=== PATIENT | male | born 1990 | race Caucasian/White ===

== ENCOUNTER 2025-03-13 09:44 | Emergency (ER) | payer OTHER, SELFPAY ==
[2025-03-13 09:53] VITALS: BP 126/90; PULSE 68; RESP 12; TEMP 36.2; O2SAT 97; BMI 29.1
[2025-03-13 10:17] LABS: Add Manual Diff / Slide Review NO; Basophils Absolute Auto 0 /uL (0-100); Basophils Percent Auto 0.2 % (0-2); Eosinophils Absolute Auto 200 /uL (0-450); Eosinophils Percent Auto 1.9 % (2-4); Hematocrit 45.1 % (41-53); Hemoglobin 15.5 g/dL (13.5-17.5); Lymphocytes Absolute Auto 1600 /uL (1100-4500); Mean Corpuscular HGB Conc 34.5 % (30-36); Mean Corpuscular Volume 89.9 fL (80-100); Monocytes Absolute Auto 800 /uL (0-900); Monocytes Percent Auto 10.7 % (3-14); Neutrophils Absolute Auto 5200 /uL (1500-7000); Neutrophils Percent Auto 66.2 % (50-75); Platelet Count 205 X10^3/uL (150-400); Red Blood Cell Count 5.01 X10^6/uL (4.5-5.9); Red Cell Distribution Width 12.2 % (11.6-14.8); White Blood Cell Count 7.8 X10^3/uL (4.5-11.0)
[2025-03-13 10:27] LABS: Alanine Aminotransferase 33 IU/L (<50); Albumin 4.8 g/dL (3.5-5.0); Albumin Globulin Ratio 1.3 (1.0-2.8); Alkaline Phosphatase 58 U/L (38-126); Aspartate Aminotransferase 33 IU/L (17-59); Bilirubin Total 0.9 mg/dL (0.2-1.3); Blood Urea Nitrogen 16 mg/dL (9-20); Calcium 9.3 mg/dL (8.4-10.2); Carbon Dioxide 28 mmol/L (22-32); Chloride 102 mmol/L (98-107); Estimated Glomerular Filt Rate > 60 mL/min (>60); Globulin 3.6 g/dL (1.7-4.1); Glucose 85 mg/dL (70-99); HEMOLYSIS < 15 (0-50); Lipase 117 U/L (23-300); Potassium 3.9 mmol/L (3.4-5.1); Sodium 140 mmol/L (137-145); Total Protein 8.4 g/dL (6.3-8.2)
--- NOTE | 2025-03-13 12:16 | ED_ITS ---
<Statement entered by Christopher Maria, - 03/13/25 18:46> Dr. Maria co Signs statement I was available for consultation during this patient's emergency department visit. This chart is signed by myself for administrative purposes only. I did not have direct contact with this patient during this visit. They were seen independently by the [facility] HPI - Abdominal Pain General Chief Complaint: Abdominal Pain Stated Complaint: LLQ Abd Pain t-2 Time Seen by Provider: 03/13/25 11:29 Source: patient Mode of arrival: Ambulatory History of Present Illness HPI narrative: 35-year-old male with no reported past medical history presents to the ED with 2 days of left lower quadrant pain. Patient denies fever, chills, chest pain, shortness of breath, nausea, vomiting, diarrhea, constipation, hematochezia, melena, lightheadedness, dizziness, syncope. Patient reports that he feels sharp pain in the left lower quadrant, which is significantly aggravated with any movement. Denies any trauma. No history of kidney stones, diverticulitis. No abdominal surgeries. Related Data Previous Rx's Medication Instructions Recorded ciprofloxacin HCl 500 mg tablet 500 mg PO Q12H 5 days #10 tabs 03/13/25 (Cipro) metronidazole 500 mg tablet 500 mg PO Q8H 5 days #15 tabs 03/13/25 Allergies Allergy/AdvReac Type Severity Reaction Status Date / Time No Known Drug Allergies Allergy Verified 03/13/25 09:53 Review of Systems Constitutional Constitutional: Denies chills, Denies fatigue, Denies fever(s), Denies frequent falls, Denies lethargy and Denies weakness Eyes Eyes: Denies change in vision, Denies eye discharge, Denies irritation and Denies loss of vision ENT Ears, Nose, Mouth, and Throat: Denies change in voice, Denies dizziness, Denies neck pain, Denies sore throat and Denies throat swelling Cardiovascular Cardiovascular: Denies chest pain, Denies irregular heart rhythm, Denies lightheadedness, Denies palpitations, Denies dyspnea, Denies dyspnea on exertion and Denies orthopnea Respiratory Respiratory: Denies cough, Denies dyspnea, Denies dyspnea on exertion and Denies wheezing Gastrointestinal Gastrointestinal: Reports abdominal pain, Denies change in bowel habits, Denies diarrhea, Denies nausea and Denies vomiting Musculoskeletal Musculoskeletal: Denies neck pain and Denies numbness Integumentary/Breasts Skin/Breast: Denies pruritus, Denies erythema, Denies rash and Denies wounds Neurologic Neurologic: Denies behavioral changes, Denies confusion, Denies dizziness, Denies frequent falls, Denies loss of vision, Denies numbness and Denies weakness Psychiatric Psychiatric: Denies anxiety, Denies behavioral changes, Denies confusion, Denies depression, Denies homicidal ideation and Denies suicidal ideation Endocrine Endocrine: Denies fatigue, Denies flushing and Denies palpitations Hematologic/Lymphatic Hematologic/Lymphatic: Denies easy bruising Allergic/Immunologic Allergic/Immunologic: Denies urticaria, Denies throat swelling and Denies wheezing Patient History Smoking Status: Unknown if ever smoked Exam Narrative Exam Narrative: Const General:?cooperative, healthy appearing and comfortable [facility] Head:?normal to inspection Ears:?hearing grossly normal bilaterally Nose:?external nose normal Face and sinus:?normal facial exam and sinuses nontender Mouth:?oral mucosae normal Throat:?posterior oropharynx normal Eyes General:?appearance normal, both eyes and all related structures Neck Neck:?normal visual inspection and no lymphadenopathy noted Resp Effort & Inspection:?normal respiratory effort Auscultation:?clear to auscultation bilaterally Cardio Rate:?regular rate Rhythm:?regular rhythm GI Abdomen is soft, nondistended. Abdomen is exquisitely tender to palpation in the left lower quadrant. No CVA tenderness. Neuro General:?patient alert, patient awake and patient oriented x3 Initial Vital Signs Initial Vital Signs: Vital Signs Temperature 97.2 F L 03/13/25 09:53 Pulse Rate 68 03/13/25 09:53 Respiratory Rate 12 03/13/25 09:53 Blood Pressure 126/90 03/13/25 09:53 Pulse Oximetry 97 03/13/25 09:53 Oxygen Delivery Method Room Air 03/13/25 09:53 Course Orders Ordered: ED Orders 03/13/25 10:00 Complete Blood Count AUTO DIFF Stat Comprehensive Metabolic Panel Stat Lipase Stat 03/13/25 12:20 CT abdomen pelvis w con Stat Discontinued Medications Ketorolac Tromethamine (Ketorolac 30 Mg/Ml Vial) 15 mg IV NOW ONE Stop: 03/13/25 12:11 Last Admin: 03/13/25 12:24 Dose: 15 mg Ondansetron HCl (Ondansetron 4 Mg/2 Ml Inj) 4 mg IV NOW PRN PRN Reason: Nausea And Vomiting Ondansetron HCl (Ondansetron 4 Mg Odt) 4 mg PO NOW PRN PRN Reason: Nausea And Vomiting Vital Signs Vital signs: Vital Signs - 8 hr 03/13/25 09:53 03/13/25 12:31 Temperature 97.2 F L Pulse Rate 68 67 Respiratory Rate 12 Blood Pressure 126/90 134/87 Pulse Oximetry 97 100 Oxygen Delivery Method Room Air Room Air MDM - Abdominal Pain Lab Data 03/13/25 10:00 03/13/25 10:00 Labs: Lab Results 03/13/25 Range/Units 10:00 WBC 7.8 (4.5-11.0) X10^3/uL RBC 5.01 (4.5-5.9) X10^6/uL Hgb 15.5 (13.5-17.5) g/dL Hct 45.1 (41-53) % MCV 89.9 (80-100) fL MCH 31.0 (26-34) PG MCHC 34.5 (30-36) % RDW 12.2 (11.6-14.8) % Plt Count 205 (150-400) X10^3/uL Neut % (Auto) 66.2 (50-75) % Lymph % (Auto) 21.0 L (25-40) % [place] % (Auto) 10.7 (3-14) % Eos % (Auto) 1.9 L (2-4) % Baso % (Auto) 0.2 (0-2) % Neut # (Auto) 5200 (8721-8810) /uL Lymph # (Auto) 1600 (3655-3590) /uL [place] # (Auto) 800 (0-900) /uL Eos # (Auto) 200 (0-450) /uL Baso # (Auto) 0 (0-100) /uL Sodium 140 (137-145) mmol/L Potassium 3.9 (3.4-5.1) mmol/L Chloride 102 (98-107) mmol/L Carbon Dioxide 28 (22-32) mmol/L BUN 16 (9-20) mg/dL Creatinine 0.89 (0.66-1.25) mg/dL Estimated GFR > 60 (>60) mL/min BUN/Creatinine Ratio 18.0 (6-22) Glucose 85 (70-99) mg/dL Calcium 9.3 (8.4-10.2) mg/dL Total Bilirubin 0.9 (0.2-1.3) mg/dL AST 33 (17-59) IU/L ALT 33 (<50) IU/L Alkaline Phosphatase 58 (38-126) U/L Total Protein 8.4 H (6.3-8.2) g/dL Albumin 4.8 (3.5-5.0) g/dL Globulin 3.6 (1.7-4.1) g/dL Albumin/Globulin Ratio 1.3 (1.0-2.8) Lipase 117 (23-300) U/L Point of care testing: Urine Dip Bedside Urine Glucose Negative Bedside Urine Bilirubin - Negative Bedside Urine Ketone - Negative Urine Specific [place] 1.005 Bedside Urine Occult Blood +/- Bedside Urine pH 6.5 Bedside Urine Protein - Negative Bedside Urine Urobilinogen - Negative Bedside Urine Nitrite - Negative Bedside Urine Leukocytes - Negative Esterase MDM Narrative Medical decision making narrative: 25-year-old male presents to the ED with 3 weeks of URI symptoms. Concern for diverticulitis versus kidney stones versus musculoskeletal sprain/strain versus other intra-abdominal pathology versus other. Will obtain labs, lipase, CT abdomen pelvis, UA. Will give ketorolac for pain. Will reassess. Labs, UA within normal limits. CT abdomen pelvis shows findings most consistent with acute uncomplicated diverticulitis of the distal descending/proximal sigmoid colon. No extraluminal gas or organized fluid collections. Discussed findings with patient. Recommend bowel rest slowly it over the next few days. Antibiotics prescribed. Recommend follow-up with PCP as soon as possible. ED return precautions discussed with patient. Patient verbalized understanding. Medical records reviewed: Yes Discharge Plan Departure Patient Disposition: Home Clinical Impression: Diverticulitis Instructions: DI for Diverticulitis Activity Restrictions/Additional Instructions: You were evaluated in the ED today for left lower abdominal pain. Your CT scan confirms diverticulitis for which you are being prescribed antibiotics. It is also advised that you follow a bowel rest with clear liquids and advancing the diet to a more solid diet over the next 3-5 days. Please follow-up with your PCP as soon as possible. Return to the ED if you have worsening symptoms. Prescriptions: New ciprofloxacin HCl [Cipro] 500 mg tablet 500 mg PO Q12H 5 Days Qty: 10 0RF metronidazole 500 mg tablet 500 mg PO Q8H 5 Days Qty: 15 0RF Stand Alone Forms: Patient Portal/API/Survey
--- NOTE | 2025-03-13 12:20 | DI.CT.S_ITS ---
PROCEDURE: CT ABDOMEN PELVIS W CON INDICATIONS: LLQ pain TECHNIQUE: After the administration of intravenous contrast, axial sections acquired from the lung bases to the pubic symphysis. Coronal and sagittal reformats were performed. For radiation dose reduction, the following was used: automated exposure control, adjustment of mA and/or kV according to patient size. COMPARISON: None. FINDINGS: Image quality: Diagnostic. Lower Chest: No significant findings. ABDOMEN: Liver: No solid mass. Gallbladder: No radiopaque gallstones or wall thickening. Biliary ducts: No biliary dilation. Pancreas: No ductal dilation. Spleen: Size is within normal limits. Adrenal Glands: No adrenal nodules. Kidneys and Ureters: No hydronephrosis. No solid mass. No complex renal cystic lesion which requires follow up. Stomach and Bowel: Diverticulosis with wall thickening and surrounding inflammation involving the distal descending/proximal sigmoid colon. Normal appendix. Peritoneum: No abnormal intraperitoneal fluid. No free air. Ventral Wall: No significant ventral hernia. Abdominal Nodes: No retroperitoneal or mesenteric adenopathy by size criteria. Vessels: Aorta and inferior vena cava are normal in size. PELVIS: Pelvic Organs: Unremarkable. Bladder: No bladder wall thickening, accounting for underdistention. Pelvic Nodes: No enlarged lymph nodes. Miscellaneous: No inguinal hernias are seen. Bones: No aggressive osseous abnormality. IMPRESSION: Findings most consistent with acute uncomplicated diverticulitis of the distal descending/proximal sigmoid colon. No extraluminal gas or organized fluid collections. Dictated by: Cade Hicks M.D. on 03/13/2025 at 12:35 Approved by: Cade Hicks M.D. on 03/13/2025 at 12:42
[2025-03-13] MEDS: KETOROLAC 30 MG/ML VIAL 15 MG IV (12:24)
[2025-03-13 12:31] VITALS: BP 134/87; PULSE 67; O2SAT 100
== END 2025-03-13 13:04 | disposition home or self-care (01) ==
PROVIDERS: Family Medicine; Emergency Provider Student in an Organized Health Care Education/Training Program
DX: K57.92 Diverticulitis of intestine, part unspecified, without perforation or abscess without bleeding (principal)
CPT/HCPCS: 36415; 74177; 80053; 81003; 83690; 85025; 96374; 99284; J1885; Q9967

== ENCOUNTER 2025-08-19 16:22 | Emergency (ER) | payer OTHER, SELFPAY ==
[2025-08-19 16:28] VITALS: BP 131/76; PULSE 72; RESP 15; TEMP 36.4; O2SAT 99; BMI 27.0
--- NOTE | 2025-08-19 20:20 | ED.WOUNDLAC ---
HPI - Wound/Laceration General Chief Complaint: Wound/Laceration Stated Complaint: laceration r pinky Time Seen by Provider: 08/19/25 19:47 Source: patient Mode of arrival: Ambulatory History of Present Illness HPI narrative: 35-year-old male cut left pinky finger climbing over a chain-link fence, able to move the pinky finger. No other injuries. Cannot recall the date of his last tetanus shot. Bleeding controlled with local direct pressure. He does not take blood thinner medications. Related Data Previous Rx's ?Medication ?Instructions ?Recorded cephalexin 500 mg capsule 500 mg PO QID 7 days #28 caps 08/19/25 hydrocodone 5 mg-acetaminophen 325 1 tab PO Q6H PRN pain #10 tabs 08/19/25 mg tablet Allergies Allergy/AdvReac Type Severity Reaction Status Date / Time No Known Drug Allergies Allergy Verified 03/13/25 09:53 Patient History Social History Smoking Status: Never smoker Smoking Status: Never smoker Exam Narrative Exam Narrative: GENERAL: Well-developed patient, in mild distress. HEAD: Atraumatic. Normocephalic. EYES: Pupils equal round and reactive. Extraocular motions intact. No scleral icterus. No injection or drainage. ENT: Nose without bleeding, purulent drainage. Throat without erythema, tonsillar hypertrophy or exudate. Airway patent. NECK: Trachea midline. Non tender CARDIOVASCULAR: Regular rate and rhythm without murmurs, gallops, or rubs. RESPIRATORY: Clear to auscultation. Breath sounds equal bilaterally. No wheezes, rales, or rhonchi. GASTROINTESTINAL: Abdomen soft, non-tender, nondistended. EXTREMITIES: Curvilinear laceration from lateral hand lateral aspect of 5th MCP crossing up into the 5th finger midline to the medial aspect in the up toward the palm, no visible tendinous structures, can fully extend and fully flex, limited by pain but seems to have normal range of motion. I could not see any foreign body, no ligamentous or joint or tendinous structures on inspection. BACK: Nontender without deformity or crepitance. No flank tenderness. NEURO: AOx3. Motor functions grossly nonfocal. SKIN: No rash or erythema of visible areas Initial Vital Signs Initial Vital Signs: Vital Signs Temperature 97.6 F 08/19/25 16:28 Pulse Rate 72 08/19/25 16:28 Respiratory Rate 15 08/19/25 16:28 Blood Pressure 131/76 08/19/25 16:28 Pulse Oximetry 99 08/19/25 16:28 Oxygen Delivery Method Room Air 08/19/25 16:28 Procedures Laceration Repair Laceration 1: Time of procedure: 22:35 Site: hand (figth finger distal phalynx to MCP into hand) Side (If applicable): right Size (cm): 8 Description: linear Depth: simple, single layer Local Anesthetic: bupivacaine 0.25% Amount of anesthesia used (mL): 8 Pre-repair: wound explored Skin layer closed with: nylon Skin layer suture size: 4-0 Number of sutures: 18 Technique: simple, interrupted Course Orders Ordered: Discontinued Medications Acetaminophen (Acetaminophen 325 Mg Tablet) 975 mg PO NOW ONE Stop: 08/19/25 20:21 Last Admin: 08/19/25 20:28 Dose: 975 mg Documented By: BECKA Hydrocodone Bitart/Acetaminophen (Hydrocodone/Acet 5/325 Prepack) 1 bottle MISC DIRECTED ONE Stop: 08/19/25 22:34 Last Admin: 08/19/25 23:11 Dose: 1 bottle Documented By: JOHN Bacitracin (Bacitracin Oint 0.9 Gm Pckt) 1 applic TOP NOW ONE Stop: 08/19/25 23:08 Last Admin: 08/19/25 23:11 Dose: 1 applic Documented By: JOHN Bupivacaine HCl (Bupivacaine 0.5% 50 Ml Mdv) 5 ml SUBCUT NOW ONE Stop: 08/19/25 20:21 Last Admin: 08/19/25 22:42 Dose: Not Given Documented By: CANDE Bupivacaine HCl (Bupivacaine 0.5% (Pf) 30 Ml Vial) 30 ml INJ INTRA-OP ONE Stop: 08/19/25 20:26 Last Admin: 08/19/25 20:41 Dose: 30 ml Documented By: BECKA Cephalexin HCl (Cephalexin 250 Mg Capsule) 500 mg PO NOW ONE Stop: 08/19/25 22:13 Last Admin: 08/19/25 22:38 Dose: 500 mg Documented By: CANDE Diphtheria/Tetanus/Acell Pertussis (Tet,Diph,Pertuss(Acell),Vac/Pf 0.5 Ml Syringe) 0.5 ml IM .ONCE ONE Stop: 08/19/25 20:43 Last Admin: 08/19/25 21:37 Dose: 0.5 ml Documented By: RLShanae(2) Hydromorphone HCl (Hydromorphone 1 Mg/Ml Syringe) 1 mg IM NOW ONE Stop: 08/19/25 20:44 Last Admin: 08/19/25 20:48 Dose: 1 mg Documented By: TC Ondansetron HCl (Ondansetron 4 Mg Odt) 4 mg SL NOW ONE Stop: 08/19/25 20:42 Last Admin: 08/19/25 20:44 Dose: 4 mg Documented By: TC Vital Signs Vital signs: Vital Signs - 8 hr 08/19/25 23:35 Pulse Rate 71 Respiratory Rate 20 Blood Pressure 122/67 Pulse Oximetry 98 Oxygen Delivery Method Room Air MDM - Wound/Laceration MDM Narrative Medical decision making narrative: 35-year-old male sustained laceration to his right hand and 5th pinky finger caught on noe wire fencing that he tried to jump retrieving Frisbee golf Frisbee disc. Last tetanus unknown, IM Tdap ordered. See laceration repair note. I could not find any obvious foreign body or bony or tendinous or ligamentous structures, primary closure to the wound. Antibiotic ointment, finger splint, Coban wrap. Oral cephalexin, prescription for further cephalexin sent to pharmacy. Home pack of hydrocodone/APAP dose given, home pack, prescription sent to his pharmacy. Advised wound check with Orthopedic surgery Clinic in follow up, given contact information for [place] [facility], advised wound check in the next couple of days. Patient also advised he could have a partial tendon injury without direct visualization of injury, and might have later disruption of flexor tendon, though no obvious flexor tendon injury identified at this moment. Follow up with Orthopedic surgery. Take antibiotic prophylaxis. Pain medications as needed. Keep in splint for now. Return precautions discussed. Discharge Plan Departure Patient Disposition: Home Clinical Impression: Finger laceration Instructions: DI for Laceration Repair Activity Restrictions/Additional Instructions: Laceration to right 5th finger into the hand from climbing over noe fencing. Prescriptions: New cephalexin 500 mg capsule 500 mg PO QID 7 Days Qty: 28 0RF hydrocodone-acetaminophen 5-325 mg tablet 1 tab PO Q6H PRN (Reason: pain) Qty: 10 0RF Referrals: ProviderAntonella [Primary Care Provider, Family Practice] Manuel Pablo MD [Physician, Orthopedic Surgery] Stand Alone Forms: Patient Portal/API
[2025-08-19] MEDS: ACETAMINOPHEN 325 MG TABLET 975 MG PO (20:28)
[2025-08-19] MEDS: ONDANSETRON 4 MG ODT SL (20:44)
[2025-08-19] MEDS: TET,DIPH,PERTUSS(ACELL),VAC/PF 0.5 ML SYRINGE IM (21:37)
[2025-08-19] MEDS: BACITRACIN OINT 0.9 GM PCKT 1 APPLIC TOP (23:11)
[2025-08-19 23:35] VITALS: BP 122/67; PULSE 71; RESP 20; O2SAT 98
== END 2025-08-19 23:40 | disposition home or self-care (01) ==
PROVIDERS: Emergency Provider Emergency Medicine
DX: S61.216A Laceration without foreign body of right little finger without damage to nail, initial encounter (principal); W26.8XXA Contact with other sharp object(s), not elsewhere classified, initial encounter; Z23 Encounter for immunization
CPT/HCPCS: 12004; 90471; 99283; 99284; 90715; J1171